=== PATIENT | male | born 1990 | race Caucasian/White ===

== ENCOUNTER 2019-03-24 06:19 | Emergency (ER) | payer OTHER, SELFPAY ==
--- NOTE | ~2019-03-24 | XR_ITS ---
EXAMINATION: XR chest 2V DATE: 03/24/2019 06:58 INDICATION: Cough and fever. TECHNIQUE: Frontal and lateral views of the chest were obtained. COMPARISON: None. FINDINGS: The chest demonstrates clear lungs without pneumonia, pleural effusion, or pneumothorax. Th e heart size is normal. IMPRESSION: 1. . No acute cardiopulmonary disease. Reviewed, dictated and finalized at location A. [employer]
[2019-03-24 06:26] VITALS: BP 150/75; PULSE 103; RESP 19; TEMP 38.5; O2SAT 100
--- NOTE | 2019-03-24 06:31 | ED.GENADULT ---
HPI - General Adult General Chief complaint: Upper Respiratory Infection Stated complaint: COLD, FEVER, H/A Time Seen by Provider: 03/24/19 06:24 Source: RN notes reviewed History of Present Illness HPI narrative: Patient presents emergency department from home for fever. Patient states symptoms began approximately on the evening of December 19. He notes fevers, chills, a cough is been nonproductive and general body aches. Patient also notes some burning with urination over the past 2 days. He denies any rhinorrhea, abdominal pain, nausea vomiting diarrhea or any other symptoms. Patient denies any risk of STD. Denies any testicular pain. States that he did not have a measured temperature of 100 degrees yesterday with a forehead thermometer. Related Data Allergies Allergy/AdvReac Type Severity Reaction Status Date / Time No Known Allergies Allergy Verified 03/24/19 06:39 Review of Systems Review of Systems: Narrative: Gen.: See HPI ENT: Denies congestion Respiratory: Denies shortness of breath reports cough CV: Denies chest pain or palpitations GI: Denies abdominal pain nausea, emesis or diarrhea no with urination Musculoskeletal: Denies back pain or muscle pain Neuro: Denies numbness, tingling, weakness or focal weakness Skin: Denies rash Except as documented, all other systems reviewed and negative [facility] Past Medical History Medical History (Updated 03/24/19 @ 07:16 by Jordan Guevara DO) Patient denies significant medical history Social History Social History (Updated 03/24/19 @ 06:33 by Jordan Guevara DO) Smoking status: Current some day smoker Gender identity (if verbalized by the patient): Male Exam Narrative: Exam Narrative: APPEARANCE: No acute distress, nontoxic, resting in bed EYES: EOMI HEENT: Normocephalic, atraumatic, TMs clear bilaterally, nares patent, oral mucosa moist, mild erythema no exudate posterior pharynx RESPIRATORY: No respiratory distress Clear to auscultation bilaterally with no rhonchi wheezing or rales. CARDIOVASCULAR: Regular rate and rhythm without murmurs rubs or gallops. ABDOMINAL: Soft, nontender, nondistended, no rebound or guarding MUSCULOSKELETAl: Moves all extremities. No clubbing, cyanosis or edema. NEURO: Awake and alert. Following commands, speech normal, no focal deficits SKIN:: Warm, dry. No rashes lesions or abrasions PSYCHIATRIC: Normal affect/mood, Course Course Emergency Course: Discussed with patient results of workup and diagnosis. Discussed need for follow-up with primary care, proper use of medication, and reasons to return to the emergency department. Patient understands and agrees to current treatment plan Vital Signs Vital signs: Vital Signs Temperature 101.3 F H 03/24/19 06:26 Pulse Rate 103 H 03/24/19 06:26 Respiratory Rate 03/24/19 06:26 Blood Pressure 150/75 H 03/24/19 06:26 Pulse Oximetry 100 03/24/19 06:26 Temperature 101.3 F H 03/24/19 06:26 Pulse Rate 103 H 03/24/19 06:26 Respiratory Rate 03/24/19 06:26 Blood Pressure 150/75 H 03/24/19 06:26 Pulse Oximetry 100 03/24/19 06:26 Medical Decision Making Vital Signs Vital Signs: Vital Signs Temperature 101.3 F H 03/24/19 06:26 Pulse Rate 103 H 03/24/19 06:26 Respiratory Rate 03/24/19 06:26 Blood Pressure 150/75 H 03/24/19 06:26 Pulse Oximetry 100 03/24/19 06:26 Temperature 101.3 F H 03/24/19 06:26 Pulse Rate 103 H 03/24/19 06:26 Respiratory Rate 03/24/19 06:26 Blood Pressure 150/75 H 03/24/19 06:26 Pulse Oximetry 100 03/24/19 06:26 Lab Data Labs: Lab Results 03/24/19 Range/Units 06:42 Urine Color Yellow (Yellow) Urine Appearance Clear (Clear) Urine pH 5.0 (5.0-9.0) Ur Specific [place] 1.032 (1.001-1.035) Urine Protein 1+ H (Negative) mg/dL Urine Glucose (UA) Negative (Negative) mg/dL Urine Ketones 1+ H (Negative) mg/dL Ur Blood (Man) 1+ H (Negative) Urine Nitr
[2019-03-24] MEDS: ACETAMINOPHEN 500 MG TABLET 1000 MG PO (06:40)
[2019-03-24 06:52] LABS: Add Urine Microscopic? YES; Appearance Urine Clear (Clear); Bilirubin Urine Negative (Negative); Blood Urine 1+ (Negative); Color Urine Yellow (Yellow); Glucose Urine UA Negative (Negative); Ketones Urine 1+ mg/dL (Negative); Leukocyte Esterase Ur Negative LEU/UL (Negative); Mucus Urine Few /lpf; Nitrate Urine Negative (Negative); Protein Urine 1+ mg/dL (Negative); RBC Urine 0-2 /hpf (0-2); Specific Grav Ur 1.032 (1.001-1.035); WBC Urine 0-3 /hpf
== END 2019-03-24 07:35 | disposition home or self-care (01) ==
PROVIDERS: Emergency Provider Emergency Medicine
DX: J10.1 Influenza due to other identified influenza virus with other respiratory manifestations (principal); F17.200 Nicotine dependence, unspecified, uncomplicated
CPT/HCPCS: 71046; 81001; 87804; 99283; A9270

== ENCOUNTER 2019-03-29 19:39 | Emergency (ER) | payer OTHER, SELFPAY ==
[2019-03-29 19:41] VITALS: BP 148/88; PULSE 71; RESP 18; TEMP 37.2; O2SAT 100
--- NOTE | 2019-03-29 20:12 | ED.ALLEREA ---
HPI - Allergic Reaction General Chief complaint: Allergic Reaction Stated complaint: RASH Time Seen by Provider: 03/29/19 19:52 Source: patient Mode of arrival: ambulatory Limitations: no limitations History of Present Illness HPI narrative: Patient is a 29-year-old male who presents to emergency department for evaluation of hives that have been off and on for over a year noting that he began to develop them upon waking and had swelling of the lips and hands patient noted itching and irritation associated with the hives has follow-up with primary care for this took Benadryl with some improvement denies any tongue swelling dyspnea or trouble swallowing Related Data Allergies Allergy/AdvReac Type Severity Reaction Status Date / Time No Known Allergies Allergy Verified 03/29/19 19:44 Review of Systems Review of Systems: All systems reviewed & are unremarkable except as noted in HPI and below PMFSH Past Medical History Medical History Patient denies significant medical history Social History Social History Smoking status: Current some day smoker Gender identity (if verbalized by the patient): Male Exam Narrative: Exam Narrative: GENERAL: Well-appearing, well-nourished, and in no acute distress. HEAD: Normocephalic, atraumatic. EYES: PERRLA and EOMI. ENT: Nares clear, no rhinorrhea or epistaxis. Mucous membranes moist. Oropharynx without tonsillar hypertrophy exudate or other lesions. No angioedema in the oropharynx NECK: Supple. No adenopathy or masses. No stridor CHEST: Clear to auscultation. No respiratory distress. No wheezes rales or rhonchi HEART: Regular rate and rhythm. No murmur heard. EXTREMITIES: Normal range of motion. No edema. SKIN: Warm, dry, urticaria of the extremities and torso NEURO: No focal deficits. Alert and oriented x3. PSYCH: Normal mood and affect. Course Course Emergency Course: Patient in the room in no distress aware of case findings treatment plan and diagnosis agreeing to follow-up as directed or to return if symptoms worsen or concerns Vital Signs Vital signs: Vital Signs Temperature 98.9 F 03/29/19 19:41 Pulse Rate 71 03/29/19 19:41 Respiratory Rate 18 03/29/19 19:41 Blood Pressure 148/88 H 03/29/19 19:41 Pulse Oximetry 100 03/29/19 19:41 Temperature 98.9 F 03/29/19 19:41 Pulse Rate 71 03/29/19 19:41 Respiratory Rate 18 03/29/19 19:41 Blood Pressure 148/88 H 03/29/19 19:41 Pulse Oximetry 100 03/29/19 19:41 MDM - Allergic Reaction MDM Narrative Medical decision making narrative: Patient in the room in no distress felt appropriate for discharge home provided with reasons to return Discharge Plan Discharge Clinical Impression: Urticaria Patient Disposition: Home, Self-Care Condition: Stable Instructions: Antibiotic Form, Urticaria (ED) Additional Instructions: Follow up with your primary care provider within 3-5 days. Go to ER for shortness of breath, difficulty breathing, chest pain, fever/chills, weakness, nauseau/vomitting, tongue swelling or difficulty swallowing etc. or any other concerns. Avoid heat Take any prescribed medications as directed. Stay well-hydrated If you do not have a drug allergy to tylenol or motrin and can tolerate it then take tylenol or motrin as needed for discomfort/pain. Prescriptions: New prednisone 20 mg tablet 20 mg PO BID 3 Days Qty: 6 RF: 0 fexofenadine [Varsha Allergy] 180 mg tablet 180 mg PO DAILY Qty: 20 RF: 0 famotidine [Pepcid] 40 mg tablet 40 mg PO BID Qty: 20 RF: 0 epinephrine [EpiPen 2-Crow] 0.3 mg/0.3 mL auto-injector 0.3 ml SUB-Q ONCE Qty: 2 RF: 0 Follow-up/Referrals: Jared Cabral M.D. [Physician] - UNKNOWN,DOCTOR [Primary Care Provider] - Alli Robins MD [Physician] -
[2019-03-29] MEDS: predniSONE 20 MG TABLET 60 MG PO (20:18)
[2019-03-29] MEDS: FAMOTIDINE 20 MG TABLET PO (20:18)
[2019-03-29] MEDS: hydrOXYzine HCL 25 MG TABLET 50 MG PO (20:18)
[2019-03-29 20:40] VITALS: BP 122/68; PULSE 80; RESP 16; O2SAT 98
== END 2019-03-29 20:40 | disposition home or self-care (01) ==
PROVIDERS: Emergency Provider Family Medicine
DX: L50.9 Urticaria, unspecified (principal); F17.200 Nicotine dependence, unspecified, uncomplicated
CPT/HCPCS: 99283; A9270; J7512

== ENCOUNTER 2020-12-03 18:04 | Emergency (ER) | payer OTHER, SELFPAY ==
--- NOTE | ~2020-12-03 | XR_ITS ---
EXAMINATION: XR wrist LT min 3V DATE: 12/03/2020 18:27 INDICATION: Left wrist pain TECHNIQUE: Posteroanterior, ulnar deviation, oblique, and lateral views of the left wrist were obtain ed. COMPARISON: None available FINDINGS: There is no fracture, dislocation, or subluxation. The bones, soft tissues, and joint space s are normal. IMPRESSION: 1. No acute osseous abnormality. Reviewed, dictated and finalized at location A.
[2020-12-03 18:12] VITALS: BP 147/87; PULSE 59; RESP 17; TEMP 36.3; O2SAT 100
[2020-12-03 20:49] VITALS: BP 128/93; PULSE 62; RESP 12; O2SAT 99
--- NOTE | 2020-12-03 21:55 | ED_ITS ---
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 Patient denies any other pain or injury. Related Data Allergies Allergy/AdvReac Type Severity Reaction Status Date / Time No Known Allergies Allergy Verified 03/29/19 19:44 Review of Systems Review of Systems: All systems reviewed & are unremarkable except as noted in HPI and below Constitutional: Constitutional: Reports as per HPI PMFSH Past Medical History Medical History (Updated 12/03/20 @ 22:01 by Jordan Piper MD) Patient denies significant medical history Social History Social History Smoking status: Current some day smoker Gender identity (if verbalized by the patient): Male Comments Past medical history: None Family history: None Social history: Non-smoker no EtOH or drug use Exam Const: General: healthy appearing, no acute distress and alert Orientation/consciousness: patient oriented x3 HENMT: Head: normal to inspection Eyes: Conjunctivae: conjunctivae normal Neck: Neck: normal visual inspection Resp: Effort & Inspection: normal respiratory effort Skin: General skin exam: normal color Rashes: no rashes Extrem: General: no clubbing, cyanosis or edema Other: Negative for any wrist swelling or deformity. Negative for any redness. Full range of motion but with pain. Neurovascular is intact Course Vital Signs Vital signs: Vital Signs Temperature 36.3 C L 12/03/20 18:12 Pulse Rate 59 L 12/03/20 18:12 Respiratory Rate 17 12/03/20 18:12 Blood Pressure 147/87 H 12/03/20 18:12 Pulse Oximetry 100 12/03/20 18:12 Temperature 36.3 C L 12/03/20 18:12 Pulse Rate 62 12/03/20 20:49 Respiratory Rate 12 12/03/20 20:49 Blood Pressure 128/93 H 12/03/20 20:49 Pulse Oximetry 99 12/03/20 20:49 Discharge Plan Discharge Clinical Impression: Muscle strain of left wrist Qualifiers: Encounter type: initial encounter Qualified Code(s): S66.912A - Strain of unspecified muscle, fascia and tendon at wrist and hand level, left hand, initial encounter Patient Disposition: Home, Self-Care Condition: Improved Instructions: Wrist Sprain (ED) Prescriptions: No Action fexofenadine [Varsha Allergy] 180 mg tablet 180 mg PO DAILY Qty: 20 RF: 0 famotidine [Pepcid] 40 mg tablet 40 mg PO BID Qty: 20 RF: 0 epinephrine [EpiPen 2-Crow] 0.3 mg/0.3 mL auto-injector 0.3 ml SUB-Q ONCE Qty: 2 RF: 0 Follow-up/Referrals: Nilda,Gunnar Mayes DO [Primary Care Provider] - Stand Alone Forms: Work/School Release IP Time of Disposition: 22:01
[2020-12-03 22:22] VITALS: BP 120/81; PULSE 50; RESP 12; O2SAT 99
== END 2020-12-03 22:23 | disposition home or self-care (01) ==
PROVIDERS: Emergency Provider Emergency Medicine; PCP Family Medicine
DX: S66.912A Strain of unspecified muscle, fascia and tendon at wrist and hand level, left hand, initial encounter (principal); F17.200 Nicotine dependence, unspecified, uncomplicated; X50.3XXA Overexertion from repetitive movements, initial encounter; Y93.B2 Activity, push-ups, pull-ups, sit-ups
CPT/HCPCS: 73110; 99283

== ENCOUNTER 2021-02-13 20:04 | Emergency (ER) | payer SELFPAY ==
[2021-02-13 20:09] VITALS: BP 121/84; PULSE 90; RESP 18; TEMP 37.1; O2SAT 100
--- NOTE | 2021-02-13 23:58 | PC.NURSE ---
triaged pt walked out at this time before seeing provider
== END 2021-02-13 23:58 | disposition left against medical advice (07) ==
PROVIDERS: PCP Family Medicine
DX: U07.1 COVID-19 (principal)
CPT/HCPCS: 99199

== ENCOUNTER 2021-09-08 20:01 | Emergency (ER) | payer OTHER, SELFPAY ==
[2021-09-08 20:18] VITALS: BP 130/75; PULSE 69; RESP 18; TEMP 36.7; O2SAT 100
--- NOTE | 2021-09-08 21:07 | ED.EXTPRO ---
HPI - Extremity Problem General Chief complaint: Extremity Problem,Nontraumatic Stated complaint: left wrist pain, no injury Time Seen by Provider: 09/08/21 21:07 History of Present Illness HPI Narrative: Pt presents with inablilty to dorsiflex left wrist. Pt says he has had intermittent problems with left wrist since injuring it years ago when he was a [employer]is. Pt says he hurt it then and put it in a splint and it got better. Today he was driving home and felt pain in his wrist and now can't dorsiflex his wrist Related Data Allergies Allergy/AdvReac Type Severity Reaction Status Date / Time No Known Allergies Allergy Verified 09/08/21 20:23 Review of Systems Review of Systems: All systems reviewed & are unremarkable except as noted in HPI and below PMFSH Past Medical History Medical History (Updated 09/08/21 @ 21:13 by Subhash Bolton III, DO) Patient denies significant medical history Social History Social History Smoking status: Current some day smoker Gender identity (if verbalized by the patient): Male Exam Const: General: healthy appearing Nutritional Appearance: well nourished Orientation/consciousness: patient oriented x3 Limitations: no limitations Cardio: Rate: regular rate Rhythm: regular rhythm GI: GI Palp: Yes Soft to palpation Auscultation: normal bowel sounds Skin: General skin exam: normal color Rashes: no rashes Wounds: no wounds Neuro: General: patient oriented x3, no meningeal signs and no focal motor deficits Cranial nerves: Yes Nystagmus not present Speech: normal speech Gait exam (Neuro): Normal gait present Extrem: Other: minimal tenderness ulnar doral wrist but no swelling. Pt unable to dorsiflex left wrist otherwise full ROM Psych: Mental Status: mental status grossly normal Affect: normal affect Attitude: cooperative Course Vital Signs Vital signs: Vital Signs Temperature 98.1 F 09/08/21 20:18 Pulse Rate 69 09/08/21 20:18 Respiratory Rate 18 09/08/21 20:18 Blood Pressure 130/75 09/08/21 20:18 Pulse Oximetry 100 09/08/21 20:18 Oxygen Delivery Room Air 09/08/21 20:18 Temperature 98.1 F 09/08/21 20:18 Pulse Rate 69 09/08/21 20:18 Respiratory Rate 18 09/08/21 20:18 Blood Pressure 130/75 09/08/21 20:18 Pulse Oximetry 100 09/08/21 20:18 Oxygen Delivery Room Air 09/08/21 20:18 Discharge Plan Discharge Clinical Impression: Left wrist injury Patient Disposition: Home, Self-Care Condition: Stable Instructions: Antibiotic Form, Tendinitis (ED) Prescriptions: New naproxen [Naprosyn] 500 mg tablet 500 mg PO BID Qty: 20 0RF No Action fexofenadine [Varsha Allergy] 180 mg tablet 180 mg PO DAILY Qty: 20 0RF famotidine [Pepcid] 40 mg tablet 40 mg PO BID Qty: 20 0RF epinephrine [EpiPen 2-Crow] 0.3 mg/0.3 mL auto-injector 0.3 ml SUB-Q ONCE Qty: 2 0RF Rx Instructions: as a single dose; may repeat once Follow-up/Referrals: Nilda,Gunnar Mayes DO [Primary Care Provider] - Jordan Sahu MD [Physician] -
--- NOTE | 2021-09-10 19:32 | PC.NURSE ---
late note-- patient refused splint stating he would perfer to by a velcro wrist splint
== END 2021-09-08 21:20 | disposition home or self-care (01) ==
PROVIDERS: Emergency Provider Emergency Medicine; PCP Family Medicine
DX: M25.532 Pain in left wrist (principal); F17.200 Nicotine dependence, unspecified, uncomplicated
CPT/HCPCS: 29125; 99282

== ENCOUNTER 2022-09-21 15:50 | Emergency (ER) | payer OTHER, SELFPAY ==
[2022-09-21 15:56] VITALS: BP 130/88; PULSE 58; RESP 18; TEMP 36.4; O2SAT 100
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
== END 2022-09-21 17:44 | disposition home or self-care (01) ==
LOC: ANHED 17:30
PROVIDERS: Emergency Provider Physician Assistant; PCP Nurse Practitioner
DX: Z02.89 Encounter for other administrative examinations (principal)
CPT/HCPCS: 99281

== ENCOUNTER 2022-10-23 19:54 | Emergency (ER) | payer OTHER, SELFPAY ==
--- NOTE | ~2022-10-23 | XR_ITS ---
EXAMINATION: XR chest 2V DATE: 10/23/2022 20:36 INDICATION: Shortness of breath and chest pressure TECHNIQUE: PA and lateral views of the chest were obtained. COMPARISON: Chest radiograph dated 03/24/2019 FINDINGS: The lungs remain clear with no focal airspace opacities, pulmonary edema, pleural effusion or pneumot horax. The cardiomediastinal silhouette is normal. Mild thoracic spondylosis. IMPRESSION: 1. No acute cardiopulmonary disease. Reviewed, dictated and finalized at location A.
[2022-10-23 20:15] VITALS: BP 138/75; PULSE 66; RESP 18; TEMP 36.6; O2SAT 98
--- NOTE | 2022-10-23 20:19 | ECG_ITS ---
Measurements Intervals Todd Rate: 67 P: 42 RI: 145 QRS: 30 QRSD: 93 T: 14 QT: 349 QTc: 369 Interpretive Statements SINUS RHYTHM WITH SINUS ARRHYTHMIA NONSPECIFIC T-WAVE ABNORMALITY- INFERIOR LEADS BORDERLINE ECG NO PREVIOUS ECG AVAILABLE FOR COMPARISON Electronically Signed On 10-24-2022 6:50:42 CDT by Yemi Bob D.O.
[2022-10-23 20:38] LABS: Basophils Absolute Auto 0.1 K/mm3 (0.0-0.1); Basophils Percent Auto 1.4 % (0.2-1.2); Eosinophils Absolute Auto 0.5 K/mm3 (0-0.3); Eosinophils Percent Auto 4.9 % (0-4.4); Hemoglobin 14.7 g/dL (14.0-18.0); Immature Granulocyte Absolute 0.04 K/mm3 (0.00-0.031); Immature Granulocyte Percent A 0.4 % (0-0.5); Lymphocytes Absolute Auto 2.85 K/mm3 (0.9-3.2); Lymphocytes Percent Auto 30.6 % (18.3-44.2); Mean Corpuscular HGB Conc 34.2 g/dl (32-36); Mean Corpuscular Hemoglobin 29.2 pg (26-34); Mean Corpuscular Volume 85.3 fl (80-100); Monocytes Percent Auto 10.4 % (2.6-8.5); Neutrophils Absolute Auto 4.9 K/mm3 (1.3-6.7); Neutrophils Percent Auto 52.3 % (45.5-73.1); Platelet Count Result 304 k/mm3 (150-375); Red Blood Count 5.04 M/mm3 (4.6-6.20); Red Cell Distribution Width 12.8 % (11.5-14.5); White Blood Count 9.3 K/mm3 (4.5-10.0)
[2022-10-23 20:48] LABS: Alanine Aminotransferase 38 U/L (6-50); Albumin Level 4.4 g/dL (3.5-5.1); Alkaline Phosphatase 77 U/L (38-126); Anion Gap 10 mmol/L (8-16); Aspartate Amino Transferase 31 U/L (17-59); Bilirubin,Total 0.7 mg/dL (0.2-1.3); Blood Urea Nitrogen 15 mg/dL (9-20); Calcium 9.1 mg/dL (8.4-10.2); Carbon Dioxide 32 mmol/L (22-30); Chloride 103 mmol/L (98-107); Estimated CRCL calculation 93 ml/min; Estimated Glomerular Filt Rate > 60; Glucose 83 mg/dL (65-110); Sodium 145 mmol/L (137-145)
[2022-10-23 20:49] LABS: Prothrombin Time 13.9 Seconds (11.1-14.7)
[2022-10-23 21:28] VITALS: O2SAT 99
[2022-10-23 21:30] VITALS: BP 134/86; PULSE 61; RESP 14; O2SAT 100
[2022-10-23 22:19] LABS: D Dimer < 0.27 ug/mL (<0.48)
[2022-10-23 22:25] LABS: NT Pro B Type Natriuretic Pept < 20 pg/mL (19.9-100); Troponin I < 0.012 ng/mL (0.000-0.034)
[2022-10-23 22:40] LABS: Influenza A QL RT-PCR Negative (Negative); Influenza B QL RT-PCR Negative (Negative); RSV RNA, RT-PCR Negative (Negative); SARS-CoV-2 RNA PCR Negative (Negative)
--- NOTE | 2022-10-23 23:11 | ED.GENADULT ---
HPI - General Adult General Chief complaint: Shortness of Breath/Dyspnea Stated complaint: SOB Time Seen by Provider: 10/23/22 21:31 History of Present Illness HPI narrative: A 32-year-old male presenting to the ED for shortness of breath times a few weeks. Patient notes that throughout the day he finds it is difficult to catch his breath. Feels like he is unable to take a deep breath. 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 He does not perform any cardiovascular exercise. He does lift weights frequently without difficulty. Patient notes that he does have a poor diet and that he has been having some abdominal bloating. He says that he drinks about a gal of chocolate milk per day. Patient is here because his wanted him to be checked out. Patient denies fever chills chest pain abdominal pain urinary symptoms, nausea vomiting diarrhea, hematochezia or melena. Related Data Allergies Allergy/AdvReac Type Severity Reaction Status Date / Time No Known Allergies Allergy Verified 09/08/21 20:23 [facility] Past Medical History Medical History Patient denies significant medical history Social History Social History Smoking status: Current some day smoker Gender identity (if verbalized by the patient): Male Exam Narrative: APPEARANCE: No apparent distress. Head: atraumatic. EYES: EOMI, NOSE: Atraumatic NECK: Trachea midline RESPIRATORY: No increased rate of breathing , clear to auscultation speaking full sentences CARDIOVASCULAR: RRR, no peripheral edema ABDOMINAL: Non-distended soft nontender no guarding or rebound MUSCULOSKELETAl: No obvious deformities NEURO: Alert. Moving 4/4 extremities SKIN:: Warm, dry. Normal color PSYCHIATRIC: Normal affect Course Vital Signs Vital signs: Vital Signs Temperature 97.8 F 10/23/22 20:15 Pulse Rate 66 10/23/22 20:15 Respiratory Rate 18 10/23/22 20:15 Blood Pressure 138/75 10/23/22 20:15 Pulse Oximetry 98 10/23/22 20:15 Oxygen Delivery Room Air 10/23/22 20:15 Temperature 97.8 F 10/23/22 20:15 Pulse Rate 61 10/23/22 21:30 Respiratory Rate 14 10/23/22 21:30 Blood Pressure 134/86 10/23/22 21:30 Pulse Oximetry 100 10/23/22 21:30 Oxygen Delivery Room Air 10/23/22 21:28 Medical Decision Making MDM Narrative Medical decision making narrative: -Course: 32-year-old presenting with subjective shortness of breath, especially during exercise. Workup including troponin/EKG, BNP, dimer, chest x-ray at and basic labs were negative. Subjectively the patient has dyspnea but objectively he is resting comfortably with normal respiratory rate and 100% on pulse ox. 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 Chest x-ray unremarkable. Independent EKG interpretation: Rhythm [sinus], Rate [67], [place] -[normal], MA -[normal], QRS [narrow], QTC [normal], T waves -[negative for concerning inversions], ST Segments - [Negative for concerning elevations] Final interpretations: [Normal Sinus Rhythm] -Shared decision making / Disposition: discharged w/ pcp follow-up Vital Signs Vital Signs: Vital Signs Temperature 97.8 F 10/23/22 20:15 Pulse Rate 66 10/23/22 20:15 Respiratory Rate 18 10/23/22 20:15 Blood Pressure 138/75 10/23/22 20:15 Pulse Oximetry 98 10/23/22 20:15 Oxygen Delivery Room Air 10/23/22 20:15 Temperature 97.8 F 10/23/22 20:15 Pulse Rate 61 10/23/22 21:30 Respiratory
== END 2022-10-23 23:31 | disposition home or self-care (01) ==
PROVIDERS: Emergency Provider Emergency Medicine; PCP Nurse Practitioner
DX: R06.00 Dyspnea, unspecified (principal); F17.200 Nicotine dependence, unspecified, uncomplicated; Z20.822 Contact with and (suspected) exposure to COVID-19
CPT/HCPCS: 36415; 71046; 80053; 83880; 84484; 85025; 85380; 85610; 87637; 93005; 99284

== ENCOUNTER 2024-01-28 10:57 | Emergency (ER) | payer OTHER, SELFPAY ==
[2024-01-28 11:20] VITALS: BP 134/73; PULSE 65; RESP 18; TEMP 36.4; O2SAT 99
--- NOTE | 2024-01-28 11:31 | ED.URI ---
HPI - URI/Sore Throat General Stated Complaint: cough Time Seen by Provider: 01/28/24 12:00 Source: patient Mode of arrival: ambulatory Limitations: no limitations History of Present Illness HPI Narrative: Tico is a 34-year-old male patient presenting to the clinic today with complaints cough and nasal congestion x3 days. His kids have been possibly exposed to whooping cough at school. Has brought all 3 children in with him today. He denies any fevers, chills, or body aches. Denies any chest pain or shortness of breath. MD elicited complaint: cough and nasal congestion Related Data Allergies Allergy/AdvReac Type Severity Reaction Status Date / Time No Known Allergies Allergy Verified 01/28/24 12:02 Review of Systems Review of Systems: Pertinent positives per HPI. Patient denies any fever, chills, rash, headache, visual changes, dizziness, shortness of breath, chest pain, palpitations, nausea, vomiting, diarrhea, constipation, abdominal pain, or any urinary issues. PMFSH Past Medical History Medical History Patient denies significant medical history Social History Social History Smoking status: Current some day smoker Gender identity (if verbalized by the patient): Male Comments At the time of my signature, I reviewed and agree with the nursing past medical, surgical, social, and family history. There is no relevant family history pertinent to the patient complaint. Exam Narrative: General: Well-developed, well nourished, in no apparent distress Head: Normocephalic, atraumatic Eyes: Pupils equally round and reactive to light bilaterally, EOM intact, sclera and conjunctive clear, no discharge, lids normal Ears: TMs intact and clear, ear canals clear, no drainage, grossly hearing normal. Nose: Nares patent, clear nasal discharge, no inflammation, no sinus tenderness. Mouth: Oral pharynx without lesions or masses, good dentition, MMM. Postnasal drip Neck: Supple, trachea midline, no enlargement of anterior or posterior cervical nodes, no thyroid masses or goiter palpable. Cardio: Regular rate and rhythm, s1 and s2 normal, no murmur appreciated. Resp: Clear to auscultation bilaterally, no rhonchi, rales, wheezing or rubs Course Course Emergency Course: Portions of this record may have been created with voice recognition software. Level of Care: Express Care Visit Vital Signs Vital signs: Vital signs reviewed MDM - URI/Sore Throat MDM Narrative Medical decision making narrative: At the time of visit patient is resting comfortably on the exam table. Patient appears to be nontoxic. Plan: Will cover for walking pneumonia/pertussis exposure as I believe 1 of the children have walking pneumonia and they have all possibly had and pertussis exposure. Will place patient on azithromycin and send in an albuterol inhaler as needed. Supportive measures were discussed with the patient and they voiced understanding discharge instructions and agrees to treatment plan. Return precautions reviewed Differential Diagnosis Differential diagnosis: Likely upper respiratory infection, otitis media, sinusitis, viral infection, bronchitis, influenza, pharyngitis and other (COVID) Discharge Plan Discharge Clinical Impression: URI (upper respiratory infection) Qualifiers: URI type: unspecified URI Qualified Code(s): J06.9 - Acute upper respiratory infection, unspecified Patient Disposition: Home, Self-Care Condition: Stable Instructions: Antibiotic Form, Upper Respiratory Infection (ED) Additional Instructions: Take prescription medications only as prescribed-azithromycin and albuterol inhaler Increase fluids and stay well hydrated Tylenol/motrin for pain/fever Flonase and OTC antihistamines as directed Vicks vapor rub to open sinuses Sinus rinses for congestion Cepacol spray, cough drops, throat lozenges, warm tea with honey/lemon, gargle salt water to soothe throat BRAT diet for diarrhea Clear liquids x 24 hours then advance as tolerated for nausea/vomiting Go to the ED if you develop a worsening in your condition- high fever not controlled by Tylenol or Motrin, dehydration, weakness, lethargy, shortness of breath, or chest pain. Follow up with your PCP in 3-5 days if symptoms persist. Patient Language: Nicarag[place] Prescriptions: New azithromycin 250 mg tablet See Rx Instructions .ROUTE .COMPLEX Qty: 6 0RF Rx Instructions: For 250 mg dose pack: take 500 mg today (day 1), then 250 mg for 4 days (days 2-5) albuterol sulfate 90 mcg/actuation HFA aerosol inhaler 2 puff inhalation Q4-6H PRN (Reason: shortness of breath or wheezing) 30 Days Qty: 8.5 0RF Follow-up/Referrals: Pradeep,EUGENIO Cade [Primary Care Provider] - Stand Alone Forms: Work/School Release IP Time of Disposition: 12:10 Quality NIHSS Nursing Documentation ED NIHSS nursing documentation: reviewed/agree
== END 2024-01-28 12:37 | disposition home or self-care (01) ==
PROVIDERS: Emergency Provider Nurse Practitioner Family; PCP Nurse Practitioner
DX: J06.9 Acute upper respiratory infection, unspecified (principal); F17.290 Nicotine dependence, other tobacco product, uncomplicated
CPT/HCPCS: 99213; G0463